=== PATIENT | male | born 2000 | race Caucasian/White ===

== ENCOUNTER 2023-12-19 09:46 | Emergency (ER) | payer SELFPAY ==
[2023-12-19 09:48] VITALS: BP 138/97; PULSE 76; RESP 13; TEMP 36.8; O2SAT 98; BMI 20.5
--- NOTE | 2023-12-19 09:57 | PC.NURSE ---
DR HAQ AT BEDSIDE
--- NOTE | 2023-12-19 09:58 | PC.NURSE ---
er at bedside
--- NOTE | 2023-12-19 10:01 | ED_ITS ---
Discharge Plan Disposition Patient Disposition: Home, Self-Care Condition: Good Prescriptions Prescriptions: New amoxicillin-pot clavulanate 875-125 mg tablet 1 tab PO BID 7 Days Qty: 14 0RF Referrals Follow up/Referrals: Jhon Lucio [Primary Care Provider] - See instructions Activity Restrictions/Add. Instructions Additional Instructions/Restrictions: Call your family doctor to establish care for this visit to the emergency department and schedule follow-up within 48 hours to ensure improvement. If you have any worsening of your condition or any other concerning signs or symptoms, return to the emergency department or your primary care doctor for further evaluation. Augmentin twice daily for 7 days. Call your dentist to schedule follow-up to have teeth evaluated. Be sure to brush your teeth twice daily with fluoride containing toothpaste and floss at least once daily to prevent losing further teeth. Clinical Impressions Clinical Impression: Toothache, Dental caries Discharge ED Provider: Eddy Paiz General Adult HPI General Chief complaint: Dental/Oral Stated complaint: infected tooth Time Seen by Provider: 12/19/23 09:48 Mode of Arrival: Ambulatory Source of Information: Patient Limitations: No Limitations Description of Symptoms (Recalled from ER Triage Doc. by RN): pt reports to ED with c/o left sided dental pain. pt reports he last seen a dentist 8 months ago. pt reports pain on right side of mouth, but swelling was concerning for him. History of Present Illness HPI narrative: Please note that above description of symptoms, in this electronic medical record under categorization of recalled from ER triage doctor by RN are reflective of an initial nursing assessment, however, is not reflective of my full history and physical exam that was personally taken and clarified. Consequentially, this preceding description of symptoms, which may include the patient's categorized chief complaint in the EMR, do not reflect my personal clinical impression, and the ultimate description of history of present illness and patient stated complaints should be deferred to this section of the note. Unless stated otherwise or congruent with this section of the note, additional signs, symptoms, or incongruence should be interpreted as inaccurate with my clinical impression. Related Data Previous Rx's Medication Instructions Recorded amoxicillin 875 mg-potassium 1 tab PO BID 7 days #14 tabs 12/19/23 clavulanate 125 mg tablet Allergies Allergy/AdvReac Type Severity Reaction Status Date / Time No Known Allergies Allergy Verified 12/19/23 10:01 [facility] Disclaimer: The information contained in this section may have been updated after the patient was seen, as this information can be updated by other users. Social History Smoking Status: Current every day smoker alcohol intake: never current occupational status: employed Travel in the last 8 weeks: None ROS Obtained: Yes All systems reviewed & no additional complaints except as documented Physical Exam General General appearance: alert and in no apparent distress Head Head exam: atraumatic and normocephalic Eye Eye exam: Present normal appearance, PERRL and EOMI ENT ENT exam: Present mucous membranes moist and other (Poor dentition, no evidence of abscess. No evidence of tonsillitis, exudate, pharyngeal erythema, uvular deviation, palatal swelling, trismus, dental abscess, angioedema, or other abnormal armando pharyngeal findings) Neck Neck exam: Present normal inspection, full ROM and trachea midline Respiratory Respiratory exam: Absent respiratory distress, wheezes, stridor, accessory muscle use or prolonged expiratory phase Cardiovascular Cardiovascular exam: Present normal rhythm Abdominal Exam Abdominal exam: Present soft; Absent distention, tenderness, guarding, rebound or rigidity Extremities Exam Extremities exam: Absent edema Neurological Exam Neurological exam: Present alert, oriented X3, CN II-XII intact and normal gait; Absent motor sensory deficit Skin Skin exam: Present warm and dry; Absent diaphoresis or erythema Medical Decision Making Medical Records Medical records reviewed: Yes I reviewed the patient's medical records. Ryan Inquiry Pt receiving controlled substance: No Ryan was queried for this patient: No Vital Signs: 12/19/23 09:48 12/19/23 10:08 Temperature 98.2 F 98.1 F Temperature Source Oral Oral Pulse Rate 63 Pulse Rate [Left Radial] 76 Respiratory Rate 13 16 Blood Pressure 140/82 Blood Pressure [Right Arm] 138/97 H Blood Pressure Mean [Right Arm] 110 Blood Pressure Source Automatic Cuff Blood Pressure Position Sitting 02 Sat by Pulse Oximetry 98 Oxygen Delivery Method Room Air Room Air Orders (Tests/Meds): ED MEDICATIONS Discontinued Medications Generic Name Dose Route Start Last Admin Trade Name Freq PRN Reason Stop Dose Admin Lidocaine HCl 15 ml 12/19/23 10:03 12/19/23 10:09 Lidocaine 2% Viscous Gege 15ml Udc PO 12/19/23 10:04 15 ml ONCE ONE Administration Medical Decision Narrative: Is a 23-year-old male with history of poor dentition, numerous dental caries, dental abscesses, necessitating extraction presenting with dental pain. This been going on for about 2 weeks. Started in left maxillary molar posteriorly, over the past 2 days has been in his left mandibular teeth. No difficulty swallowing, chewing, breathing. No outward swelling, no difficulty or pain with range of motion of neck, trismus, fevers or chills, tongue swelling, or any other concerns. States that he has follow-up with a dentist, has not seen them yet, planning to follow-up. History obtained with patient. On her arrival patient hemodynamically stable, no acute distress. Physical exam with numerous dental caries, very poor dentition and gingivitis. Patient does not have any discernible/drainable abscess in his mouth. Tenderness primarily at tooth 15 and tooth 17/18. No evidence of tonsillitis, exudate, pharyngeal erythema, uvular deviation, palatal swelling, trismus, dental abscess, angioedema, or other abnormal armando pharyngeal findings. Patient given dental balls for comfort. Because no acute concern for decompensation, deemed appropriate for outpatient management with Augmentin and dentist follow-up. Because patient at baseline without signs or symptoms of clinical decompensation, deemed appropriate for discharge. Results were relayed to patient who voiced understanding and were agreeable to outpatient management and follow up. I discussed my clinical impression with patient and answered all questions. At this time, the evidence for any other entities in the differential is insufficient to warrant any further testing or ED observation. This was explained as well. Advisory was given that persistent or worsening symptoms require further evaluation. I confirmed the understanding of this discussion. Sql Ssis Developer disclaimer Much of this encounter note is an electronic medical office technologist spoken language to printed text. Electronic medical office technologist of the spoken language may permit errors. Although I have reviewed the note, some errors may still exist. Critical Care Critical Care Time Critical Care Time: No
[2023-12-19 10:08] VITALS: BP 140/82; PULSE 63; RESP 16; TEMP 36.7; O2SAT 99
[2023-12-19] MEDS: LIDOCAINE 2% VISCOUS SOL 15ML UDC 15 ML PO (10:09)
== END 2023-12-19 10:11 | disposition home or self-care (01) ==
PROVIDERS: Emergency Provider Emergency Medicine; PCP Family Medicine
DX: K08.89 Other specified disorders of teeth and supporting structures (principal); K02.9 Dental caries, unspecified; F17.210 Nicotine dependence, cigarettes, uncomplicated
CPT/HCPCS: 99283